=== PATIENT | female | born 1985 ===

== ENCOUNTER 2016-09-30 16:02 | Emergency (ER) | payer BC ==
[2016-09-30 16:15] VITALS: BP 117/70
--- NOTE | 2016-09-30 16:43 | UC ---
Throat Pain/Nasal Thierno HPI - HPI Summary HPI Summary: 31 y/o female presents to the urgent care c/o sore throat since last Tuesday. Today she started with mild hoarseness and b/l ear pain. Patient denies nasal congestion, fever, headache, SOB, or difficulty swallowing. - History of Current Complaint Chief Complaint: UCRespiratory Stated Complaint: SORE THROAT Hx Obtained From: Patient Hx Last Menstrual Period: IUD ?: No Onset/Duration: Sudden Onset, Lasting Days, Still Present Severity: Moderate Pain Intensity: 4 Cough: Nonproductive Associated Signs & Symptoms: Positive: Dysphagia, Hoarseness. Negative: Sinus Discomfort, Fever, Vomiting, Rash Related History: Smoking - Allergies/Home Medications Allergies/Adverse Reactions: Allergies Allergy/AdvReac Type Severity Reaction Status Date / Time No Known Allergies Allergy Verified 09/30/16 16:15 PMH/Surg Hx/FS Hx/Imm Hx Previously Healthy: Yes - Surgical History Surgical History: None - Family History Known Family History: Positive: Diabetes, Other - breast cancer - Social History Occupation: Employed Full-time Alcohol Use: Weekly Substance Use Type: None Smoking Status (MU): Former Smoker When Did the Patient Quit Smoking/Using Tobacco: 2016 Review of Systems Skin: Negative Eyes: Negative ENT: Sore Throat, Other - hoarseness Respiratory: Negative Cardiovascular: Negative Gastrointestinal: Negative Genitourinary: Negative Neurovascular: Negative Musculoskeletal: Negative Neurological: Negative All Other Systems Reviewed And Are Negative: Yes Physical Exam Triage Information Reviewed: Yes Appearance: Well-Appearing, No Pain Distress, Well-Nourished - female Vital Signs: Initial Vital Signs Temp 99 F 09/30/16 16:11 Pulse 94 09/30/16 16:11 Resp 16 09/30/16 16:11 BP 117/70 09/30/16 16:11 Pulse Ox 100 09/30/16 16:11 Vital Signs Reviewed: Yes Eye Exam: Normal Eyes: Positive: Conjunctiva Clear. Negative: Discharge ENT: Positive: Hearing grossly normal, Pharyngeal erythema, TMs normal, Tonsillar swelling. Negative: Nasal congestion, Nasal drainage Dental Exam: Normal Neck exam: Normal Neck: Positive: Supple, Enlarged Nodes @ - anterior cervical lymph nodes swollen and tender Respiratory Exam: Normal Respiratory: Positive: Chest non-tender, Lungs clear, Normal breath sounds Cardiovascular Exam: Normal Cardiovascular: Positive: RRR, No Murmur, Pulses Normal Abdomen Description: Positive: Nontender, No Organomegaly, Soft Bowel Sounds: Positive: Present Musculoskeletal Exam: Normal Neurological Exam: Normal Psychological Exam: Normal Skin Exam: Normal Throat Pain/Nasal Course/Dx - Differential Dx/Diagnosis Differential Diagnosis/HQI/PQRI: Laryngitis, Pharyngitis, Tonsillitis, URI Provider Diagnoses: viral pharyngitis Discharge - Discharge Plan Condition: Stable Disposition: HOME Prescriptions: Ibuprofen TAB* [Motrin TAB* 600 MG] 600 mg PO Q6H PRN #20 tab PRN Reason: Pain Patient Education Materials: Pharyngitis (ED) Referrals: [facility] [Outside] Additional Instructions: take medication as directed to alleviate symptoms. If symptoms persists or worsens go to the Ed for continue evaluation or f/u with PCP or urgent care for further treatment.
== END 2016-09-30 17:10 | disposition home or self-care (01) ==
LOC: UCCORT 16:02
DX: J02.9 Acute pharyngitis, unspecified (principal); H92.03 Otalgia, bilateral; Z87.891 Personal history of nicotine dependence
CPT/HCPCS: 87651; 99202; G0463